=== PATIENT | male | born 1930 | race African-American/Black ===

== ENCOUNTER 2018-12-30 10:52 | Emergency (ER) | payer MEDICARE, MEDICAID ==
[~2018-12-30] VITALS: Ht 180.3 cm; Wt 103.0 kg
[2018-12-30] MEDS ORDERED: SODIUM CHLORIDE 0.9% 1,000 ML IV ONE (11:58)
[2018-12-30 12:35] LABS: EOSINOPHILS % 5.4 % (0.0-5.0); HEMOGLOBIN. 12.5 g/dL (14.0-18.0); LYMPHOCYTES % 24.1 % (20.0-50.0); MEAN CORPUSCULAR HEMOGLOBIN 27.7 pg (28.0-32.0); MEAN CORPUSCULAR VOLUME 84.2 fL (80.0-94.0); MEAN PLATELET VOLUME 8.9 fl (7.4-10.4); NEUTROPHILS % 58.5 % (40.0-76.0); PLATELET 132 x1000/uL (130-400); RED BLOOD CELL COUNT 4.51 mill/uL (4.7-6.1); RED CELL DISTRIBUTION WIDTH 16.3 % (11.6-14.6)
[2018-12-30 12:44] LABS: CHLORIDE 104 mEq/L (98-107)
[2018-12-30] MEDS ORDERED: CEFTRIAXONE 1 G PREMIX 50 ML IV ONE (14:15)
[2018-12-30 15:14] LABS: CLARITY URINE CLEAR (CLEAR); COLOR URINE YELLOW (YELLOW); KETONES URINE NEGATIVE (NEGATIVE); LEUKOCYTE ESTERASE URINE NEGATIVE (NEGATIVE); NITRITE URINE NEGATIVE (NEGATIVE); OCCULT BLOOD URINE NEGATIVE (NEGATIVE); PH URINE 6.5 (4.5-8.0); PROTEIN URINE NEGATIVE (NEGATIVE); SPECIFIC GRAVITY URINE 1.003 (1.005-1.030); UROBILINOGEN URINE 0.2 E.U./dL (0.2-1.0)
[2018-12-30 18:15] VITALS: BP 118/65
== END 2018-12-30 18:41 | disposition short-term general hospital (02) ==
LOC: ER 10:52 → CANBEDREQ 14:34 → CANRESERV 15:30 → ENRESERV 15:30 → SUPCPDRO 15:34 → CANBEDREQ 17:00 → ER 18:41
DX: G90.8 Other disorders of autonomic nervous system (principal); E86.0 Dehydration; N28.9 Disorder of kidney and ureter, unspecified; D64.9 Anemia, unspecified; I10 Essential (primary) hypertension; I45.10 Unspecified right bundle-branch block; H26.9 Unspecified cataract
CPT/HCPCS: 36415; 70450; 71045; 80053; 81003; 83605; 85025; 87040; 93005; 96361; 96365; 99285; J0696; J7030